=== PATIENT | female | born 1985 | race Caucasian/White ===

== ENCOUNTER 2018-04-11 21:13 | Emergency (ER) | payer MEDICAID ==
[~2018-04-11] VITALS: Ht 162.6 cm; Wt 104.5 kg
[~2018-04-11 21:13] MED LIST: IBUP-2071 PO; LISI1TAB9 PO; MULT1TAB70 PO; TOPI25 PO
[2018-04-11 21:21] VITALS: BP 150/98
== END 2018-04-11 23:41 | disposition left against medical advice (07) ==
LOC: EMS 21:14
DX: Z53.21 Procedure and treatment not carried out due to patient leaving prior to being seen by health care provider (principal)